=== PATIENT | female | born 2005 | race Caucasian/White ===

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

== ENCOUNTER → 2023-10-15 | Outpatient (CLI) | payer BC | END | disposition home or self-care (01) | LOC: LAB SHORT 18:47 → LAB 18:47 | DX: R30.0 Dysuria (principal) | CPT/HCPCS: 87077; 87086; 87186 ==

== ENCOUNTER → 2024-05-17 | Outpatient (CLI) | payer BC | END | disposition home or self-care (01) | LOC: LAB SHORT 17:53 | DX: R30.0 Dysuria (principal) | CPT/HCPCS: 87086 ==